=== PATIENT | female | born 1960 | race Caucasian/White ===

== ENCOUNTER 2019-11-13 12:20 | Inpatient (IN) | payer OTHER, SELFPAY ==
[2019-11-13] VITALS (10 sets, daily range): BP systolic 87–122; BP diastolic 45–85; PULSE 72–87; RESP 16–22; TEMP 35.7–36.7; O2SAT 95–100; BMI 37.1
--- NOTE | ~2019-11-13 | CT_ITS ---
EXAMINATION: CTA chest PE protocol EXAM DATE: 11/13/2019 14:41 INDICATION: Shortness of breath, pleuritic back pain. TECHNIQUE: Spiral CTA of the chest (pulmonary arteries) was performed with 100 cc Omnipaque 350 intr avenous contrast injection. Images were acquired during the pulmonary arterial phase. Coronal maxi mum intensity projection 3D-reconstructions were created by the technologist on dedicated workstation . Axial, coronal and sagittal reformatted images were reviewed. The dose-length product (DLP) for t his examination was 535.18 mGy-cm. The exposure was tailored according to patient size (auto mA exp osure control), and iterative reconstruction (ASIR) was used as additional dose reduction technique. Comparison is made to prior examination from 11/11/2012. FINDINGS: Pulmonary arteries are well opacified and without intraluminal filling defects. No thora cic aortic dissection. Dense segmental right lower lobe consolidation with surrounding groundglass o pacity. Groundglass opacity within the right upper lobe as well. Appearance most consistent with bact erial type pneumonia. Follow-up chest x-rays recommended to resolution. There are no pleural or rosina cardial effusions. Tracheobronchial tree is patent. There is no mediastinal, hilar or axillary ly mphadenopathy. There is no pneumothorax. Heart normal in size. No evidence of coronary arterial calcification. Upper abdomen is unremarkable. There is mild thoracic spondylosis without osteobla stic or osteolytic lesions identified. IMPRESSION: 1. Right lower lobe segmental consolidation, additional scattered right lung groundglass opacities m ost likely acute infectious process, bacterial pneumonia. Follow-up chest x-ray indicated to resoluti on to exclude any underlying chronic process. 2. No pulmonary emboli. Reviewed, dictated and finalized at location A. IMPRESSION: 1. Right lower lobe segmental consolidation, additional scattered right lung g roundglass opacities most likely acute infectious process, bacterial pneumonia. Follow-up chest x-ray indicated to resolution to exclude any underlying chroni c process. 2. No pulmonary emboli.
--- NOTE | ~2019-11-13 | XR_ITS ---
EXAMINATION: XR chest 1V portable DATE: 11/13/2019 13:07 INDICATION: Cough TECHNIQUE: frontal view of the chest was obtained. COMPARISON: Chest radiograph and CT dated 11/11/2012 FINDINGS: There is mild elevation of the right hemidiaphragm. New airspace opacity in the right midlung. No ple ural effusion or pneumothorax. The cardiomediastinal silhouette is normal. IMPRESSION: 1. New airspace opacity in the right midlung zone which could represent pneumonia, atelectasis or asy mmetric pulmonary edema. Reviewed, dictated and finalized at location A. IMPRESSION: 1. New airspace opacity in the right midlung zone which could represent pneumon ia, atelectasis or asymmetric pulmonary edema.
--- NOTE | ~2019-11-13 | XR_ITS ---
MODIFIED ESOPHAGRAM HISTORY: Dysphagia. TECHNIQUE: Modified barium esophagram was performed on 11/14/2019. I administered fluoroscopy and perfo rmed the exam with speech pathologist. Patient was seated for lateral fluoroscopic imaging for inges tion of thin liquids, pudding, solids and quantified amounts, followed by thin liquids in uncontrolle d amounts. This was recorded on tape. A single fluoroscopic spot image was also recorded. The DAP for this procedure was 1.4 Gycm2. The amount of fluoroscopy time used during this procedure was 1.6 madison amanda. FINDINGS: There are surgical clips in the prevertebral soft tissues of the pharynx and upper esophagus. Oral stage: Adequate function. Pharyngeal stage: Laryngeal penetration and aspiration which was silent. Vallecular residue. Cervical/esophageal stage: Adequate function. IMPRESSION: Pharyngeal dysphagia with laryngeal penetration and silent aspiration. Reviewed, dictated and finalized at location A. IMPRESSION: Pharyngeal dysphagia with laryngeal penetration and silent aspirati on.
[2019-11-13] MEDS: SODIUM CHLORIDE 0.9% IV 1,000 ML 999 ML IV CONT ×2 (12:54→15:06)
[2019-11-13 13:04] LABS: Basophils Percent Auto 0.2 % (0.2-1.2); Eosinophils Absolute Auto 0.1 K/mm3 (0-0.3); Eosinophils Percent Auto 0.7 % (0-4.4); Hematocrit 32.4 % (37.0-47.0); Hemoglobin 10.5 g/dL (12.0-15.0); Immature Granulocyte Absolute 0.04 K/mm3 (0.00-0.031); Immature Granulocyte Percent A 0.5 % (0-0.5); Lymphocytes Absolute Auto 0.95 K/mm3 (0.9-3.2); Lymphocytes Percent Auto 10.9 % (18.3-44.2); Mean Corpuscular HGB Conc 32.4 g/dl (32-36); Mean Corpuscular Volume 89.5 fl (80-100); Mean Platelet Volume 8.7 fl (7.4-10.4); Monocytes Absolute Auto 0.8 K/mm3 (0.1-0.6); Monocytes Percent Auto 8.6 % (2.6-8.5); Neutrophils Absolute Auto 6.9 K/mm3 (1.3-6.7); Neutrophils Percent Auto 79.1 % (45.5-73.1); Platelet Count Result 197 k/mm3 (150-375); Red Blood Count 3.62 M/mm3 (4.2-5.4); Red Cell Distribution Width 13.2 % (11.5-14.5); White Blood Count 8.8 K/mm3 (4.5-10.0)
[2019-11-13 13:15] LABS: D Dimer 1.38 ug/mL (<0.48)
[2019-11-13 13:16] LABS: Anion Gap 6 mmol/L (8-16); Blood Urea Nitrogen 27 mg/dL (7-17); Calcium 9.2 mg/dL (8.4-10.2); Carbon Dioxide 28 mmol/L (22-30); Chloride 102 mmol/L (98-107); Estimated CRCL calculation 58 ml/min; Estimated Glomerular Filt Rate 57; Glucose 119 mg/dL (65-105); Potassium 3.9 mmol/L (3.4-5.0); Sodium 136 mmol/L (137-145)
[2019-11-13 13:53] LABS: Alanine Aminotransferase 19 U/L (4-35); Albumin Level 3.7 g/dL (3.5-5.1); Alkaline Phosphatase 82 U/L (38-126); Anion Gap 7 mmol/L (8-16); Aspartate Amino Transferase 29 U/L (14-36); Bilirubin,Total < 0.1 mg/dL (0.2-1.3); Blood Urea Nitrogen 27 mg/dL (7-17); CRP 26.8 mg/dL (<1.0); Calcium 9.1 mg/dL (8.4-10.2); Carbon Dioxide 28 mmol/L (22-30); Chloride 102 mmol/L (98-107); Estimated CRCL calculation 58 ml/min; Estimated Glomerular Filt Rate 57; Glucose 117 mg/dL (65-105); Sodium 137 mmol/L (137-145)
[2019-11-13 14:08] LABS: Lactic Acid Reflex 0.7 mmol/L (0.7-2.1)
[2019-11-13 14:31] LABS: HIV 1/2 Ab P24 Ag 163
[2019-11-13 14:34] LABS: HIV 1/2 Ab P24 Ag Result Reactive (Negative)
--- NOTE | 2019-11-13 15:08 | ED.GENADULT ---
HPI - General Adult General Chief complaint: Upper Respiratory Infection Stated complaint: FEVER/CHILLS/SOB Time Seen by Provider: 11/13/19 12:36 History of Present Illness HPI narrative: Patient is a 58-year-old female who presents ER with fevers and chills. Cycling over the last week. Associated with pain in her back that is worse with a deep breath. She has some mild dyspnea. No nausea/vomiting. No lower extremity swelling. 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 He was discharged 2 weeks ago. At that time they found that he was HIV positive. She has never been tested previously and had no previous concerns for being HIV positive. She would like to be tested today. No known covered exposures. Related Data Home Medications Medication Instructions Recorded Confirmed alprazolam 1 mg PO QID PRN 11/13/19 11/13/19 amitriptyline 75 mg PO DAILY PRN 11/13/19 11/13/19 chlorhexidine gluconate 15 ml PO DAILY 11/13/19 11/13/19 dextroamphetamine-amphetamine 10 mg PO TID 11/13/19 11/13/19 ibuprofen 800 mg PO Q6H PRN 11/13/19 11/13/19 levothyroxine 50 mcg PO DAILY 11/13/19 11/13/19 lisinopril 40 mg PO DAILY 11/13/19 11/13/19 meloxicam 15 mg PO DAILY 11/13/19 11/13/19 oxycodone-acetaminophen 1 tablet PO Q4-6H PRN 11/13/19 11/13/19 rosuvastatin 40 mg PO DAILY 11/13/19 11/13/19 sertraline [Zoloft] 200 mg PO DAILY 11/13/19 11/13/19 Allergies Allergy/AdvReac Type Severity Reaction Status Date / Time morphine Allergy Mild unknown Verified 11/13/19 17:41 codeine Allergy Unknown Unknown Verified 11/13/19 17:41 Review of Systems Review of Systems: All systems reviewed & are unremarkable except as noted in HPI and below Constitutional: Constitutional: Reports chills, Reports fever(s) and Reports weakness ENT: Denies nasal congestion and Denies sore throat Cardiovascular: Cardiovascular: Denies chest pain and Denies radiating jaw, neck or arm pain Respiratory: Respiratory: Denies cough, Reports dyspnea and Denies wheezing Gastrointestinal: Gastrointestinal: Denies abdominal pain, Denies nausea and Denies vomiting Musculoskeletal: Musculoskeletal: Reports back pain, Denies joint swelling and Denies muscle cramps PMFSH Past Medical History Medical History (Updated 11/13/19 @ 18:26 by Andrés Fuentes MD) Anxiety Depression HIV positive Hyperlipidemia Hypertension Hypothyroidism Tonsillar cancer Surgical History Surgical History (Updated 11/13/19 @ 18:26 by Andrés Fuentes MD) H/O neck surgery History of Family History Family History (Updated 11/03/15 @ 23:19 by DOCTOR UNKNOWN) Father Hypertension Family history of diabetes mellitus in first degree relative Social History Social History (Updated 11/13/19 @ 15:42 by Andrés Fuentes MD) Smoking packs per day: 1 Smoking cigarettes per day: 20.0 Smoking status: Current every day smoker Alcohol intake: never Substance use: never Gender identity (if verbalized by the patient): Female Sexual Orientation (if Verbalized by the Patient): Straight or Heterosexual Spiritual care concerns: Yes (Moravian/Pentecostal) Exam Narrative: Exam Narrative: GENERAL: Well-appearing, well-nourished, and in no acute distress. HEAD: Normocephalic, atraumatic. ENT: Mucous membranes moist. CHEST: Clear to auscultation. No respiratory distress. HEART: Regular rate and rhythm. Normal peripheral pulses. ABDOMEN: Soft, nontender, nondistended. Back: No midline tenderness of thoracic lumbar spine. There is significant paraspinal muscular tenderness between the mid thoracic spine and the scapula that patient reports reproduces her pain. EXTREMITIES: Normal range of motion. No edema. SKIN: Warm, dry, no rash. NEURO: Alert and oriented x3. Course Course Emergency Course: Patient looks well despite low blood pressure and elevated CRP. Patient will not be
--- NOTE | 2019-11-13 17:24 | ADMGEN ---
This patient, Stormy Eric, was admitted to IMU Room 201-01. Patient/family oriented to hospital policies and general routines including ID bracelet, bed and alarms, visiting hours, pain management, procedures, bathroom and other care routines, personal items, smoking policy, room service/diet, and visiting hours. Valuables list has been completed. Information on how to activate the Rapid Response Team has been discussed. Patient/Family are encouraged to report perceived risks to care and to ask questions if they do not understand what they are told or what they should do.
--- NOTE | 2019-11-13 17:30 | PM.IMHP ---
H&P: HPI History of Present Illness Date/Time: 11/13/19 17:30 Chief complaint: Fever, cough. Narrative: Stormy Eric is a 58-year-old female smoker with hypertension, dyslipidemia, hypothyroidism, depression, anxiety, chronic pain syndrome, and history of squamous cell carcinoma of the head and neck who presented to the emergency department earlier this afternoon with complaints of a fever and cough. While grocery shopping 4 evening ago, she developed sudden onset chills and later that evening she reports a subjective fever and hot sweats. She also began experiencing pleuritic pain in her right anterior chest and in the right scapula as well as a mild cough occasionally productive of clear sputum. Her appetite has been as per usual, which is poor as she really has no sense of taste or smell since radiation and chemotherapy for her head and neck cancer in 2007. With further questioning, she initially had issues with dysphagia after her cancer was resected but she went through speech therapy and that did improve. On occasion she will still cough or choke when eating and drinking, but she cannot recall aspirating recently. More recently she has been suffering from what sounds like indigestion, with frequent belching and occasional regurgitation at night and burning in her esophagus. She denies significant shortness of breath, vomiting, diarrhea, recent travel, and exposure to those positive for COVID-19. She has not had sick contacts, but she does live in a house with her boyfriend and her boyfriend's mother, and she provides care for them as they were both ill. It sounds as though his mother has a trach and that her boyfriend recently had cardiac bypass with a complicated postoperative course and in fact he was found to be HIV positive. They have been together for approximately 16 years, so she assumed she probably has HIV to and her test did come back reactive today. Review of Systems Review of Systems: Narrative: Twelve systems were reviewed with pertinent positives and negatives as per HPI. No headache or neck ache. She has had a mild sore throat which she attributes to coughing and postnasal drip. She has chronic pain at the site of her cancer resection for which she takes oxycodone. She is also on meloxicam for generalized osteoarthritis. She denies vomiting. She also denies hematemesis, melena, and hematochezia. She believes that she has lost some weight, but she cannot say how much as she does not really weigh herself. No dysuria or diarrhea. She has been suffering from periodontal disease, and has several loose teeth. This disease causes her issues when eating, and she believes this is why she is losing weight. Except as documented, all other systems were reviewed and are negative. [facility] Past Medical History Medical History Anxiety Attention deficit disorder Chronic pain syndrome Depression Hyperlipidemia Hypertension Hypothyroidism Nicotine dependence Normal nuclear stress test (~11/2012) Normal thallium stress and MPI. Squamous cell carcinoma of head and neck Status post resection, radiation, and chemotherapy in 2007. Surgical History Surgical History (Updated 11/13/19 @ 21:24 by Michelle Erickson PA-C) History of bilateral breast reduction surgery History of bladder suspension procedure History of section History of open reduction and internal fixation (ORIF) procedure Right ankle. Status post radical dissection of neck (~2007) Right sided for squamous cell carcinoma of the head and neck. Family History Family History (Updated 11/13/19 @ 21:25 by Michelle Erickson PA-C) Father Hypertension Diabetes mellitus Cerebrovascular accident Sibling Hypertension Social History Social History (Updated 11/13/19 @ 21:27 by Michelle Erickson PA-C) Social History: Surrogate decision maker: Shefali Roldan, daughter. Code status: Full code.
[2019-11-13 22:42] LABS: Immature Reticulocyte Fraction 3.1 % (3.0-15.9); Reticulocyte Hemoglobin Conten 27.9 pg (28.2-35.7); Reticulocytes Absolute 0.02 B/L (32.2-175.7)
[2019-11-13 22:51] LABS: Lactate Dehydrogenase 358 U/L (313-618)
[2019-11-13] MEDS: ENOXAPARIN 40 MG/0.4 ML SYRINGE SUB-Q (23:01)
[2019-11-13 23:04] LABS: Iron 17 ug/dL (37-170)
[2019-11-13 23:13] LABS: Percent Iron Saturation 7 % (20-50)
[2019-11-13] MEDS: oxyCODONE/ACETAMINOPHEN 5-325 MG TABLET 1 TABLET PO (23:38)
[2019-11-13 23:58] LABS: Folic Acid 8.9 ng/mL (2.76->20)
[2019-11-14] VITALS (15 sets, daily range): BP systolic 88–125; BP diastolic 47–69; PULSE 61–100; RESP 16–20; TEMP 36.1–36.6; O2SAT 91–98
[2019-11-14 04:23] LABS: Hematocrit 30.5 % (37.0-47.0); Hemoglobin 9.7 g/dL (12.0-15.0); Mean Corpuscular HGB Conc 31.8 g/dl (32-36); Mean Corpuscular Hemoglobin 28.6 pg (26-34); Mean Platelet Volume 8.8 fl (7.4-10.4); Platelet Count Result 191 k/mm3 (150-375); Red Blood Count 3.39 M/mm3 (4.2-5.4); Red Cell Distribution Width 13.3 % (11.5-14.5)
[2019-11-14 04:41] LABS: Anion Gap 4 mmol/L (8-16); Blood Urea Nitrogen 17 mg/dL (7-17); Calcium 8.5 mg/dL (8.4-10.2); Carbon Dioxide 27 mmol/L (22-30); Chloride 106 mmol/L (98-107); Estimated CRCL calculation 111 ml/min; Estimated Glomerular Filt Rate > 60; Glucose 82 mg/dL (65-105); Potassium 4.4 mmol/L (3.4-5.0); Sodium 137 mmol/L (137-145)
[2019-11-14] MEDS: LEVOTHYROXINE SODIUM 50 MCG TABLET PO (05:35)
[2019-11-14] MEDS: oxyCODONE/ACETAMINOPHEN 5-325 MG TABLET 1 TABLET PO (05:36)
[2019-11-14] MEDS: PANTOPRAZOLE 40 MG TABLET PO (08:38)
[2019-11-14] MEDS: MELOXICAM 7.5 MG TABLET 15 MG PO (08:38)
[2019-11-14] MEDS: SERTRALINE HCL 50 MG TABLET 200 MG PO (08:38)
[2019-11-14] MEDS: ROSUVASTATIN 10 MG TABLET 40 MG PO (08:38)
[2019-11-14] MEDS: CHLORHEXIDINE GLUCONATE 0.12% ORAL RINSE 473 ML BTL (*BKC) 15 ML SWISH/SPIT (08:39)
--- NOTE | 2019-11-14 11:50 | PCSTNOTE ---
Modified barium swallow study completed. Please see ST evaluation for details and diet recommendations.
--- NOTE | 2019-11-14 14:29 | PM.IMPN ---
Progress Note: A&P Assessment and Plan (1) Community acquired pneumonia: Code(s): J18.9 - Pneumonia, unspecified organism Status: Acute Assessment and Plan: No fevers here but presents with fever and cough. CTA showing no PE but does show a right lower lobe segmental consolidation with scattered right lung groundglass opacities. Looks like a round PNA. Patient will need follow-up to resolution to exclude underlying chronic process. Given the aspiration risk, will change to Zosyn. Vanco added for the positive BCx. Not on supplemental O2. Continue to follow. (2) Bacteremia: Code(s): R78.81 - Bacteremia Status: Acute Assessment and Plan: BCx (1of2) has returned positive for gram positive cocci in clusters in anaerobic bottle. Abx adjusted as above. Follow up on ID and sensitivities. (3) Dysphagia: Code(s): R13.10 - Dysphagia, unspecified Status: Acute Assessment and Plan: Patient told provider on admisison that she has been having feelings of regurgitation at nighttime. Swallow study obtained and patient found to be having silent aspirations. She states now that she has had trouble swallowing since her XRT in 2007. She has never been assessed for dysphagia that she remembers. Speech therapy to follow. Start IV fluids. Change meds to IV or hold. NPO for now. Discussed with patient and boyfriend (with patient permission) in the room. (4) HIV positive: Code(s): Z21 - Asymptomatic human immunodeficiency virus [HIV] infection status Status: Acute Assessment and Plan: Patient's boyfriend recently discovered that he was HIV(+). Patient tested positive here for HIV. HIV vial load and CD4 counts added. Will consult ID. (5) Hypertension: Code(s): I10 - Essential (primary) hypertension Status: Acute Assessment and Plan: Patient has hx of HTN and takes Lisinopril. BP soft since admission related to the sepsis with bacteremia. Patient's blood pressure was reviewed on 11/14/19. Blood pressure remains soft at times. Will continue to hold home medications. IV fluids started. (6) Gastroesophageal reflux: Code(s): K21.9 - Gastro-esophageal reflux disease without esophagitis Status: Acute Assessment and Plan: Patient describes GERD symptoms with burning, belching, and feelings of regurgitation at nighttime. PPI started. (7) Hypothyroidism: Code(s): E03.9 - Hypothyroidism, unspecified Status: Acute Assessment and Plan: TSH nomral. Continue levothyroxine and change to IV form. (8) Normocytic anemia: Code(s): D64.9 - Anemia, unspecified Status: Acute Assessment and Plan: Hgb 10.5 on admission. No baseline. Iron is low with 7% saturation but TIBC low as well to suggest anemia of chronic disease. Ferritin normal. Repeat Hgb 9.7. Add iron when able. (9) Squamous cell carcinoma of head and neck: Code(s): C76.0 - Malignant neoplasm of head, face and neck Status: Acute Assessment and Plan: Status post resection, radiation, and chemotherapy in 2007. (10) Nicotine dependence: Code(s): F17.200 - Nicotine dependence, unspecified, uncomplicated Status: Acute Assessment and Plan: She declines the need for a nicotine patch. (11) Chronic pain syndrome: Code(s): G89.4 - Chronic pain syndrome Status: Acute Assessment and Plan: Patient takes oxycodon
[2019-11-14] MEDS: DEXTROSE 5%/0.9% SOD CHL 1,000 ML 70 ML IV CONT (15:27)
[2019-11-14] MEDS: ENOXAPARIN 40 MG/0.4 ML SYRINGE SUB-Q (20:25)
[2019-11-15] VITALS (13 sets, daily range): BP systolic 100–136; BP diastolic 56–87; PULSE 54–72; RESP 16–20; TEMP 36.3–36.7; O2SAT 94–97
[2019-11-15 04:51] LABS: Basophils Percent Auto 0.2 % (0.2-1.2); Eosinophils Absolute Auto 0.1 K/mm3 (0-0.3); Eosinophils Percent Auto 2.3 % (0-4.4); Hematocrit 29.7 % (37.0-47.0); Hemoglobin 9.3 g/dL (12.0-15.0); Immature Granulocyte Absolute 0.01 K/mm3 (0.00-0.031); Immature Granulocyte Percent A 0.2 % (0-0.5); Lymphocytes Absolute Auto 0.97 K/mm3 (0.9-3.2); Lymphocytes Percent Auto 22.1 % (18.3-44.2); Mean Corpuscular HGB Conc 31.3 g/dl (32-36); Mean Corpuscular Hemoglobin 28.2 pg (26-34); Mean Platelet Volume 8.5 fl (7.4-10.4); Monocytes Absolute Auto 0.4 K/mm3 (0.1-0.6); Monocytes Percent Auto 9.8 % (2.6-8.5); Neutrophils Absolute Auto 2.9 K/mm3 (1.3-6.7); Neutrophils Percent Auto 65.4 % (45.5-73.1); Platelet Count Result 205 k/mm3 (150-375); Red Cell Distribution Width 13.2 % (11.5-14.5); White Blood Count 4.4 K/mm3 (4.5-10.0)
[2019-11-15 05:07] LABS: Anion Gap 4 mmol/L (8-16); Blood Urea Nitrogen 12 mg/dL (7-17); Calcium 8.4 mg/dL (8.4-10.2); Carbon Dioxide 29 mmol/L (22-30); Chloride 103 mmol/L (98-107); Estimated CRCL calculation 94 ml/min; Estimated Glomerular Filt Rate > 60; Glucose 94 mg/dL (65-105); Sodium 136 mmol/L (137-145)
[2019-11-15] MEDS: LEVOTHYROXINE SODIUM INJ 100 MCG/5 ML VIAL 25 MCG IV PUSH (06:17)
[2019-11-15] MEDS: PANTOPRAZOLE SODIUM IV 40 MG VIAL IV PUSH (08:12)
[2019-11-15] MEDS: CHLORHEXIDINE GLUCONATE 0.12% ORAL RINSE 473 ML BTL (*BKC) 15 ML SWISH/SPIT (08:14)
--- NOTE | 2019-11-15 09:26 | WPDINFPN2 ---
Progress Note: A&P Assessment and Plan (1) HIV positive: Code(s): Z21 - Asymptomatic human immunodeficiency virus [HIV] infection status Status: Acute Assessment and Plan: 1. + HIV test, probably true infection 2. CAP 3. Bacteremia 4. Aspiration syndrome REC PipTazo and vanc. Viral load pending for confirmation. Hepatitis serology, rpr. Subjective Date/time seen: 11/15/19 09:26 Objective Data Vital Signs Vital Signs: Vital Signs - 24 hr 11/14/19 09:33 11/14/19 10:02 11/14/19 12:00 Temperature 36.6 C Pulse Rate 65 69 Respiratory Rate 18 Blood Pressure 116/49 L 100/49 L Pulse Oximetry 98 11/14/19 14:02 11/14/19 16:00 11/14/19 18:10 Temperature 36.5 C Pulse Rate 68 70 64 Respiratory Rate 18 Blood Pressure 99/58 L Pulse Oximetry 95 11/14/19 19:21 11/14/19 20:00 11/14/19 22:00 Temperature 36.5 C Pulse Rate 65 75 61 Respiratory Rate 18 Blood Pressure 113/59 L Pulse Oximetry 94 11/14/19 23:51 11/15/19 00:00 11/15/19 02:00 Temperature 36.1 C L Pulse Rate 65 67 69 Respiratory Rate 16 Blood Pressure 107/47 L Pulse Oximetry 94 11/15/19 03:48 11/15/19 04:00 11/15/19 06:00 Temperature 36.4 C Pulse Rate 72 72 65 Respiratory Rate 20 Blood Pressure 136/87 Pulse Oximetry 96 11/15/19 07:58 Temperature 36.3 C L Pulse Rate 65 Respiratory Rate 20 Blood Pressure 122/63 Pulse Oximetry 94 Intake/Output Intake/Output: Intake & Output 11/12/19 11/13/19 11/14/19 11/15/19 23:59 23:59 23:59 23:59 Intake Total 2300 490 550 Output Total 274 417 8394 Balance [phone] -[phone] [id number] Meds/Results Medications: Active Medications Generic Name Dose Route Start Last Admin Trade Name Freq PRN Reason Stop Dose Admin Acetaminophen 650 mg 11/13/19 15:38 Tylenol Tablet PO Q4H PRN Mild Pain (1-3) or Fever Albuterol 2 puff 11/13/19 21:40 Proventil Hfa INHALATION QIDRT PRN Shortness Of Breath Alprazolam 1 mg 11/13/19 21:41 Xanax PO QID PRN Anxiety Amitriptyline HCl 75 mg 11/13/19 21:41 Elavil PO DAILY PRN Anxiety Chlorhexidine Gluconate 15 ml 11/14/19 09:00 11/15/19 08:14 Peridex SWISH/SPIT 15 ml DAILY LENCHO Administration Enoxaparin Sodium 40 mg 11/13/19 21:00 11/14/19 20:25 Lovenox SUB-Q 40 mg Q24H LENCHO Administration Dextrose/Sodium Chloride 1,000 mls @ 70 mls/hr 11/14/19 14:55 11/14/19 15:27 Dextrose 5% Sodium Chloride 0.9% IV CONT 70 mls/hr .[id number] LENCHO Administration Piperacillin/Tazobactam/Dextrose 3.375 gm in 50 mls @ 100 mls/hr 11/14/19 18:00 11/15/19 06:45 Zosyn 3.375 Gm/D5w 50ml Pm IVPB Infused Q6HR LENCHO Infusion Vancomycin HCl 1,500 mg in 500 mls @ 333.333 mls/hr 11/14/19 19:00 11/15/19 06:18 Vancomycin 1,500 Mg/D5w 500 Ml IVPB 333.3 mls/hr Q12H LENCHO Administration Acetaminophen 1,000 mg in 100 mls @ 400 mls/hr 11/14/19 19:04 11/15/19 08:50 Ofirmev 1,000 Mg Ivpb IVPB 11/15/19 16:17 400 mls/hr Q6H PRN Administration Pain Rated 1-6 Levothyroxine Sodium 50 mcg 11/14/19 06:30 11/14/19 05:35 Synthroid PO 50 mcg DAILY@0630 LENCHO Administration Levothyroxine Sodium 25 mcg 11/15/19 06:30 11/15/19 06:17 Synthroid Inj IV PUSH 25 mcg DAILY@0630 LENCHO Administration Lorazepam 0.5 mg 11/14/19 11:43 11/14/19 23:07 Ativan Inj IV PUSH 0.5 mg Q6H PRN Administration Anxiety Meloxicam 15 mg 11/14/19 09:00 11/14/19 08:38 Mobic PO 12/14/19 09:01 15 mg DAILY LENCHO Administration Non-Formulary Medication 10 mg 11/14/19 09:00 11/14/19 11:08 Dextroamphetamine-Amphetamine PO 12/14/19 09:01 Not Given TID LENCHO Ondansetron HCl 4 mg 11/13/19 15:38 Zofran Inj IV PUSH Q4H PRN Nausea Oxycodone HCl 5 mg 11/13/19 23:18 11/14/19 05:36 Roxicodone Ir Tablet PO 5 mg Q4-6H PRN Administration Pain Rated 7-10 Oxycodone/Acetaminophen 1 tablet 08
[2019-11-15 10:35] LABS: Hepatitis B Surface Antigen Negative (Negative)
[2019-11-15 10:41] LABS: HAV RESULT Negative (Negative); Hepatitis B Core IgM Result Negative (Negative)
[2019-11-15 10:52] LABS: Hepatitis C Virus Antibody Negative (Negative)
--- NOTE | 2019-11-15 11:01 | CONS_ITS ---
DATE OF CONSULTATION: 11/15/2019 REASON FOR CONSULTATION: HIV positive tests. HISTORY OF PRESENT ILLNESS: Ms. Eric is a 58-year-old female who may have received blood transfusions as part of treatment for her cancer some 10 years ago. Otherwise, she has had no previous blood transfusions. She has never tried to donate blood. She has never worked in the healthcare field nor had accidental needle sticks in the community. She has had approximately 12 sexual partners in her lifetime, none of whom were HIV-positive until currently, that she was aware of. She has never had previous HIV testing at any point. She has a daughter of approximately 42 years old and a son 15 years old. She is and has been living with her boyfriend with sexual intercourse for some 15 years. He found out about 2 weeks prior to the present admission that he was HIV positive, done his evaluation for complications from surgery, by the patient's description. Her does not use a condom. The patient has had no past STDs. She was admitted to the hospital on November 12 with 4 days of fever, chills, diaphoresis, cough, pleuritic pain, sputum production without nausea or vomiting. She has had some aspiration symptoms. Also GERD. While here, the patient was given antibiotics, now changed to piperacillin and vancomycin due to concern over aspiration pneumonia as well as positive blood cultures. I was not notified of the consult until this morning. ALLERGIES: MORPHINE, CODEINE. HABITS: Long-time tobacco, half pack per day. She denies ever using IV drugs and no illegal drugs in the last 2 years. Alcohol intake is none. No immunosuppressants. PAST MEDICAL HISTORY: Head and neck cancer. Squamous cell, about 12 years ago with radical neck dissection and chemotherapy. Also, breast reduction, bladder suspension, , ORIF right ankle, ADD, depression, hyperlipidemia, hypertension, hypothyroidism. REVIEW OF SYSTEMS: A 14-point review is otherwise negative. FAMILY HISTORY: Hypertension, diabetes, stroke. SOCIAL HISTORY: Lives with her boyfriend and son. 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 PHYSICAL EXAMINATION: GENERAL: This is a female, who appears older than her actual age, in no acute distress. VITAL SIGNS: Afebrile since arrival. 122/63, 65, 20, 94%. SKIN: Warm and dry. No generalized rash. HEENT: The conjunctivae are normal. Pupils equal, round, and reactive to light. Oropharynx, oral mucosa normal. Teeth in good repair. No paranasal sinus erythema edema tenderness. NECK: No meningismus, mass, thyromegaly. LUNGS: Clear to auscultation. Breath sounds are vesicular and clear to percussion. CARDIAC: Regular rate and rhythm. Normal S1, S2. No murmur, gallop, or rub. Pulses 2+. ABDOMEN: Morbidly obese, nontender. No masses. No organomegaly. No ascites. Normal bowel sounds. EXTREMITIES: No clubbing, cyanosis, edema. Well perfused. MUSCULOSKELETAL: No active joint inflammation. Neurologic awake, alert, oriented, appropriate, answers questions. LABORATORY DATA: Her HIV screen is reactive. Quantitative RNA in process. Blood cultures 2/2 sets gram-positive cocci in clusters. White count was 8.8 on admission, 4.4 today, hemoglobin 9.3, platelets are 205. Differential today is normal. Chemistry normal except for a sodium 136, earlier glucose 117, now normalized. Iron and TIBC both low. CRP 27. TSH normal. Lymphocyte panel pending. Legionella and urine pneumococcal antigens all pending as well. RADIOLOGY: I personally reviewed her chest x-ray. She has a new right mid lung field infiltrate. I reviewed the radiologist reading as well. CT as described. MBS also abnormal. ASSESSMENT: 1. Aspiration syndrome. 2. Fever and cou
[2019-11-15] MEDS: DEXTROSE 5%/0.9% SOD CHL 1,000 ML 70 ML IV CONT (12:04)
--- NOTE | 2019-11-15 15:52 | PM.IMPN ---
Progress Note: A&P Assessment and Plan (1) Community acquired pneumonia: Code(s): J18.9 - Pneumonia, unspecified organism Status: Acute Assessment and Plan: No fevers here but presents with fever and cough. CTA showing no PE but does show a right lower lobe segmental consolidation with scattered right lung groundglass opacities consistent with PNA. Patient will need follow-up to resolution to exclude underlying chronic process. Given the aspiration risk, Rocephin/Azithromycin changed to Zosyn. Vanco added for the positive BCx. Not requiring O2. (2) Bacteremia: Code(s): R78.81 - Bacteremia Status: Acute Assessment and Plan: BCx (2of2) has returned positive for coag negative staph. Continue Vancomycin. ID consulted and appreciate their input. Repeat BCx tomorrow. (3) Dysphagia: Code(s): R13.10 - Dysphagia, unspecified Status: Acute Assessment and Plan: Patient told provider on admission that she has been having feelings of regurgitation at nighttime. Swallow study obtained and patient found to be having silent aspiration. She states now that she has had trouble swallowing since her XRT in 2007. She has never been assessed for dysphagia that she remembers. She is NPO now and Speech therapy is following. Continue IV fluids. (4) HIV positive: Code(s): Z21 - Asymptomatic human immunodeficiency virus [HIV] infection status Status: Acute Assessment and Plan: Patient's boyfriend recently discovered that he was HIV(+). Patient tested Ab positive here for HIV. HIV vial load and CD4 counts added. ID following and appreciate their input. (5) Hypertension: Code(s): I10 - Essential (primary) hypertension Status: Acute Assessment and Plan: Patient has hx of HTN and takes Lisinopril. BP soft since admission related to the sepsis with bacteremia. Patient's blood pressure was reviewed on 11/15/19. Blood pressure still remains soft at times but more stable. Will continue to hold home medications. Continue IV fluids. Okay to move out of [facility] (6) Gastroesophageal reflux: Code(s): K21.9 - Gastro-esophageal reflux disease without esophagitis Status: Acute Assessment and Plan: Patient describes GERD symptoms with burning, belching, and feelings of regurgitation at nighttime. Continue PPI. (7) Hypothyroidism: Code(s): E03.9 - Hypothyroidism, unspecified Status: Acute Assessment and Plan: TSH nomral. Continue levothyroxine IV form. (8) Normocytic anemia: Code(s): D64.9 - Anemia, unspecified Status: Acute Assessment and Plan: Hgb 10.5 on admission. No baseline. Iron is low with 7% saturation but TIBC low as well to suggest anemia of chronic disease. Ferritin normal. Repeat Hgb 9.3. Add iron when able. (9) Squamous cell carcinoma of head and neck: Code(s): C76.0 - Malignant neoplasm of head, face and neck Status: Acute Assessment and Plan: Status post resection, radiation, and chemotherapy in 2007. (10) Nicotine dependence: Code(s): F17.200 - Nicotine dependence, unspecified, uncomplicated Status: Acute Assessment and Plan: She declines the need for a nicotine patch. (11) Chronic pain syndrome: Code(s): G89.4 - Chronic pain syndrome Status: Acute Assessment and Plan: Patient takes oxycodone as needed but placed on hold due to NPO status and low
--- NOTE | 2019-11-15 17:04 | PC.NURSE ---
This patient, Stormy Eric, was transferred to [[id number] ] on 11/15/19 at 1704. Personal belongings sent with patient. Belongings list checked and signed with receiving [ ]. Report given to [ JALEEL Harper @ [phone]]. Appropriate documentation sent with patient.
--- NOTE | 2019-11-15 17:05 | PC.NURSE ---
Transfer received from [facility]. Report from JALEEL Guerra.
[2019-11-15] MEDS: ENOXAPARIN 40 MG/0.4 ML SYRINGE SUB-Q (20:04)
[2019-11-16] VITALS: BP 133/74; PULSE 62; RESP 16; TEMP 36.6; O2SAT 95
[2019-11-16 05:23] VITALS: BP 134/82; PULSE 75; RESP 16; TEMP 37.1; O2SAT 94
[2019-11-16] MEDS: LEVOTHYROXINE SODIUM INJ 100 MCG/5 ML VIAL 25 MCG IV PUSH (05:52)
[2019-11-16] MEDS: DEXTROSE 5%/0.9% SOD CHL 1,000 ML 70 ML IV CONT (05:52)
[2019-11-16 06:36] LABS: Hematocrit 30.9 % (37.0-47.0); Hemoglobin 9.9 g/dL (12.0-15.0); Mean Corpuscular Hemoglobin 28.6 pg (26-34); Mean Corpuscular Volume 89.3 fl (80-100); Mean Platelet Volume 8.3 fl (7.4-10.4); Platelet Count Result 203 k/mm3 (150-375); Red Blood Count 3.46 M/mm3 (4.2-5.4); Red Cell Distribution Width 12.9 % (11.5-14.5); White Blood Count 4.3 K/mm3 (4.5-10.0)
[2019-11-16 07:00] LABS: Anion Gap 4 mmol/L (8-16); Blood Urea Nitrogen 9 mg/dL (7-17); Calcium 8.5 mg/dL (8.4-10.2); Carbon Dioxide 29 mmol/L (22-30); Chloride 106 mmol/L (98-107); Estimated CRCL calculation 97 ml/min; Estimated Glomerular Filt Rate > 60; Glucose 99 mg/dL (65-105); Potassium 3.7 mmol/L (3.4-5.0); Sodium 139 mmol/L (137-145)
[2019-11-16 07:18] LABS: Vancomycin Trough 17.5 ug/mL (10.0-20.0)
[2019-11-16 08:16] LABS: Rapid Plasma Reagin Non-Reactive (NonReactive)
[2019-11-16] MEDS: PANTOPRAZOLE SODIUM IV 40 MG VIAL IV PUSH (09:11)
[2019-11-16] MEDS: CHLORHEXIDINE GLUCONATE 0.12% ORAL RINSE 473 ML BTL (*BKC) 15 ML SWISH/SPIT (09:12)
--- NOTE | 2019-11-16 13:46 | WPDINFPN2 ---
Progress Note: A&P Assessment and Plan (1) HIV positive: Code(s): Z21 - Asymptomatic human immunodeficiency virus [HIV] infection status Status: Acute Assessment and Plan: 1. + HIV test, probably true infection. Other serologies so far NR (hep B core and Quantiferon still pending) 2. CAP, better 3. Bacteremia, CNSS 4. Aspiration syndrome REC PipTazo and vanc same, 2 days more IV therapy. Await viral load as well as CD4 panel. 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 Subjective Date/time seen: 11/16/19 13:46 Objective Data Vital Signs Vital Signs: Vital Signs - 24 hr 11/15/19 14:00 11/15/19 20:00 11/15/19 21:03 Temperature 36.7 C Pulse Rate 54 L 57 L 57 L Respiratory Rate 16 16 Blood Pressure 127/76 Pulse Oximetry 97 97 11/16/19 00:00 11/16/19 05:23 Temperature 36.6 C 37.1 C Pulse Rate 62 75 Respiratory Rate 16 16 Blood Pressure 133/74 134/82 Pulse Oximetry 95 94 Intake/Output Intake/Output: Intake & Output 11/13/19 11/14/19 11/15/19 11/16/19 23:59 23:59 23:59 23:59 Intake Total 2300 490 3050 2400 Output Total 885 142 7965 950 Balance 1650 -310 -1450 1450 Meds/Results Medications: Active Medications Generic Name Dose Route Start Last Admin Trade Name Freq PRN Reason Stop Dose Admin Acetaminophen 650 mg 11/13/19 15:38 Tylenol Tablet PO Q4H PRN Mild Pain (1-3) or Fever Albuterol 2 puff 11/13/19 21:40 Proventil Hfa INHALATION QIDRT PRN Shortness Of Breath Alprazolam 1 mg 11/13/19 21:41 Xanax PO QID PRN Anxiety Amitriptyline HCl 75 mg 11/13/19 21:41 Elavil PO DAILY PRN Anxiety Chlorhexidine Gluconate 15 ml 11/14/19 09:00 11/16/19 09:12 Peridex SWISH/SPIT 15 ml DAILY LENCHO Administration Enoxaparin Sodium 40 mg 11/13/19 21:00 11/15/19 20:04 Lovenox SUB-Q 40 mg Q24H LENCHO Administration Dextrose/Sodium Chloride 1,000 mls @ 70 mls/hr 11/14/19 14:55 11/16/19 05:52 Dextrose 5% Sodium Chloride 0.9% IV CONT 70 mls/hr .[id number] LENCHO Administration Piperacillin/Tazobactam/Dextrose 3.375 gm in 50 mls @ 100 mls/hr 11/14/19 18:00 11/16/19 06:35 Zosyn 3.375 Gm/D5w 50ml Pm IVPB Infused Q6HR LENCHO Infusion Acetaminophen 1,000 mg in 100 mls @ 400 mls/hr 11/15/19 16:38 11/16/19 04:33 Ofirmev 1,000 Mg Ivpb IVPB 11/16/19 16:39 Infused Q6H PRN Infusion Pain Rated 4-6 Vancomycin HCl 1,500 mg in 500 mls @ 333.333 mls/hr 11/16/19 14:00 Vancomycin 1,500 Mg/D5w 500 Ml IVPB Q18H LENCHO Levothyroxine Sodium 50 mcg 11/14/19 06:30 11/14/19 05:35 Synthroid PO 50 mcg DAILY@0630 LENCHO Administration Levothyroxine Sodium 25 mcg 11/15/19 06:30 11/16/19 05:52 Synthroid Inj IV PUSH 25 mcg DAILY@0630 LENCHO Administration Lorazepam 0.5 mg 11/14/19 11:43 11/16/19 05:52 Ativan Inj IV PUSH 0.5 mg Q6H PRN Administration Anxiety Meloxicam 15 mg 11/14/19 09:00 11/14/19 08:38 Mobic PO 12/14/19 09:01 15 mg DAILY LENCHO Administration Non-Formulary Medication 10 mg 11/14/19 09:00 11/14/19 11:08 Dextroamphetamine-Amphetamine PO 12/14/19 09:01 Not Given TID LENCHO Ondansetron HCl 4 mg 11/13/19 15:38 Zofran Inj IV PUSH Q4H PRN Nausea Oxycodone HCl 5 mg 11/13/19 23:18 11/14/19 05:36 Roxicodone Ir Tablet PO 5 mg Q4-6H PRN Administration Pain Rated 7-10 Oxycodone/Acetaminophen 1 tablet 11/13/19 21:41 11/14/19 05:36 Percocet 5-325 Mg PO 1 tablet Q4-6H PRN Administration Pain Rated 7-10 Pantoprazole Sodium 40 mg 11/15/19 09:00 11/16/19 09:11 Protonix Iv IV PUSH 40 mg QAM LENCHO Administration Rosuvastatin Calcium 40 mg 11/14/19 09:00 11/14/19 08:38 Crestor PO 40 mg DAILY LENCHO Administration Sertraline HCl 200 mg 11/14/19 09:00 11/14/19 08:38 Zoloft PO 200 mg DAILY LENCHO Administration Radiology Results: ITS Impressions Chest
[2019-11-16 15:03] VITALS: BP 98/64; PULSE 63; RESP 16; TEMP 36; O2SAT 97
--- NOTE | 2019-11-16 16:27 | P.PNIM_ITS ---
Progress Note: A&P Assessment and Plan (1) Community acquired pneumonia: Code(s): J18.9 - Pneumonia, unspecified organism Status: Acute Assessment and Plan: * Right lower lobe consolidation suggesting community-acquired bacterial pneumonia. * Will need follow-up to resolution to exclude underlying chronic process. * Given reports of Occasional dysphasia swallow test performed and revealed some evidence of aspiration. Patient relates though she is not going to follow a modified diet * discussed with speech therapy and will resume diet with no restriction * continue 2 more days of Zosyn and vancomycin per ID total 5 days treatment * Sputum and urine to be sent for culture and urinary antigens. * COVID-19 unlikely by appearance. (2) Gastroesophageal reflux: Code(s): K21.9 - Gastro-esophageal reflux disease without esophagitis Status: Acute Assessment and Plan: * She describes GERD symptoms with burning, belching, and feelings of regurgitation at nighttime. * Started PPI (3) HIV positive: Code(s): Z21 - Asymptomatic human immunodeficiency virus [HIV] infection status Status: Acute Assessment and Plan: * Recently discovered that her boyfriend of 16 years was HIV positive. * Will send labs for confirmation. * id evaluating. (4) Hypertension: Code(s): I10 - Essential (primary) hypertension Status: Acute Assessment and Plan: * Blood pressures were soft on arrival to the emergency department, but have improved with IV fluid rehydration. * For now, holding antihypertensives and continue to monitor closely. (5) Hypothyroidism: Code(s): E03.9 - Hypothyroidism, unspecified Status: Acute Assessment and Plan: * Continue levothyroxine and TSH normal. (6) Normocytic anemia: Code(s): D64.9 - Anemia, unspecified Status: Acute Assessment and Plan: * iron studies revealed iron and TIBC low compatible with anemia chronic disease (7) Squamous cell carcinoma of head and neck: Code(s): C76.0 - Malignant neoplasm of head, face and neck Status: Acute Assessment and Plan: * Status post resection, radiation, and chemotherapy in 2007, will follow-up with ENT. (8) Nicotine dependence: Code(s): F17.200 - Nicotine dependence, unspecified, uncomplicated Status: Acute Assessment and Plan: * She declines the need for a nicotine patch. (9) Chronic pain syndrome: Code(s): G89.4 - Chronic pain syndrome Status: Acute Assessment and Plan: * Continue oxycodone as needed. Subjective Date/time seen: 11/16/19 16:27 Interval history: 58yo female with hx of sqamous cell neck cancer s/p XRT here for fever and cough and found to have RLL pneumonia. She states her longstanding boyfriend was recently diagnosed with HIV and the patietn is HIV Ab(+) here. No problems overnight. Slept well. Feeling better overall. Wants regular diet
--- NOTE | 2019-11-16 16:27 | PM.IMPN ---
Progress Note: A&P Assessment and Plan (1) Community acquired pneumonia: Code(s): J18.9 - Pneumonia, unspecified organism Status: Acute Assessment and Plan: Right lower lobe consolidation suggesting community-acquired bacterial pneumonia. Will need follow-up to resolution to exclude underlying chronic process. Given reports of Occasional dysphasia swallow test performed and revealed some evidence of aspiration. Patient relates though she is not going to follow a modified diet discussed with speech therapy and will resume diet with no restriction continue 2 more days of Zosyn and vancomycin per ID total 5 days treatment Sputum and urine to be sent for culture and urinary antigens. COVID-19 unlikely by appearance. (2) Gastroesophageal reflux: Code(s): K21.9 - Gastro-esophageal reflux disease without esophagitis Status: Acute Assessment and Plan: She describes GERD symptoms with burning, belching, and feelings of regurgitation at nighttime. Started PPI (3) HIV positive: Code(s): Z21 - Asymptomatic human immunodeficiency virus [HIV] infection status Status: Acute Assessment and Plan: Recently discovered that her boyfriend of 16 years was HIV positive. Will send labs for confirmation. id evaluating. (4) Hypertension: Code(s): I10 - Essential (primary) hypertension Status: Acute Assessment and Plan: Blood pressures were soft on arrival to the emergency department, but have improved with IV fluid rehydration. For now, holding antihypertensives and continue to monitor closely. (5) Hypothyroidism: Code(s): E03.9 - Hypothyroidism, unspecified Status: Acute Assessment and Plan: Continue levothyroxine and TSH normal. (6) Normocytic anemia: Code(s): D64.9 - Anemia, unspecified Status: Acute Assessment and Plan: iron studies revealed iron and TIBC low compatible with anemia chronic disease (7) Squamous cell carcinoma of head and neck: Code(s): C76.0 - Malignant neoplasm of head, face and neck Status: Acute Assessment and Plan: Status post resection, radiation, and chemotherapy in 2007, will follow-up with ENT. (8) Nicotine dependence: Code(s): F17.200 - Nicotine dependence, unspecified, uncomplicated Status: Acute Assessment and Plan: She declines the need for a nicotine patch. (9) Chronic pain syndrome: Code(s): G89.4 - Chronic pain syndrome Status: Acute Assessment and Plan: Continue oxycodone as needed. Subjective Date/time seen: 11/16/19 16:27 Interval history: 58yo female with hx of sqamous cell neck cancer s/p XRT here for fever and cough and found to have RLL pneumonia. She states her longstanding boyfriend was recently diagnosed with HIV and the patietn is HIV Ab(+) here. No problems overnight. Slept well. Feeling better overall. Wants regular diet Exam Narrative: Exam Narrative: AF 97.7 98/64 62 16 97% ra Gen - NARD Chest - clear, nml RR CV - RRR S1/S2; Abd - Soft, NT/ND, Positive BS Ext - No pedal edema Psych - normal mood and affect, calm, pleasant and cooperative. Skin - Warm and dry Objective Data Vital Signs Vital Signs: Vital Signs - 24 hr 11/15/19 20:00 11/15/19 21:03 11/16/19 00:00 Temperature 36.7 C 36.6 C Pulse Rate 57 L 57 L 62 Respiratory Rate 16 16 16 Bloo
[2019-11-16] MEDS: ENOXAPARIN 40 MG/0.4 ML SYRINGE SUB-Q (21:39)
[2019-11-16 23:42] VITALS: BP 127/82; PULSE 61; RESP 18; TEMP 36.8; O2SAT 98
[2019-11-17] MEDS: DEXTROSE 5%/0.9% SOD CHL 1,000 ML 70 ML IV CONT ×2 (04:27→23:42)
[2019-11-17] MEDS: oxyCODONE/ACETAMINOPHEN 5-325 MG TABLET 1 TABLET PO (04:28)
[2019-11-17] MEDS: LEVOTHYROXINE SODIUM INJ 100 MCG/5 ML VIAL 25 MCG IV PUSH (05:35)
[2019-11-17 05:45] VITALS: BP 138/87; PULSE 70; RESP 16; TEMP 36.2; O2SAT 95
[2019-11-17] MEDS: PANTOPRAZOLE SODIUM IV 40 MG VIAL IV PUSH (08:53)
[2019-11-17] MEDS: CHLORHEXIDINE GLUCONATE 0.12% ORAL RINSE 473 ML BTL (*BKC) 15 ML SWISH/SPIT (08:54)
[2019-11-17] MEDS: ALPRAZolam 0.5 MG TABLET 1 MG PO ×2 (13:34→18:34)
[2019-11-17 14:00] VITALS: BP 112/58; PULSE 60; RESP 20; TEMP 36.2; O2SAT 97
--- NOTE | 2019-11-17 15:50 | P.PNIM_ITS ---
Progress Note: A&P Assessment and Plan (1) Community acquired pneumonia: Code(s): J18.9 - Pneumonia, unspecified organism Status: Acute Assessment and Plan: * Right lower lobe consolidation suggesting community-acquired bacterial pneumonia. * Will need follow-up to resolution to exclude underlying chronic process. * Given reports of Occasional dysphasia swallow test performed and revealed some evidence of aspiration. Patient relates though she is not going to follow a modified diet * discussed with speech therapy and will resume diet with no restriction * continue 1 more days of Zosyn and vancomycin per ID total 5-6 days treatment * Sputum and urine to be sent for culture and urinary antigens still pending. * COVID-19 unlikely by appearance. (2) Gastroesophageal reflux: Code(s): K21.9 - Gastro-esophageal reflux disease without esophagitis Status: Acute Assessment and Plan: * She describes GERD symptoms with burning, belching, and feelings of regurgitation at nighttime. * Started PPI (3) HIV positive: Code(s): Z21 - Asymptomatic human immunodeficiency virus [HIV] infection status Status: Acute Assessment and Plan: * Recently discovered that her boyfriend of 16 years was HIV positive. * Sent labs for confirmation. * id evaluating. (4) Hypertension: Code(s): I10 - Essential (primary) hypertension Status: Acute Assessment and Plan: * Blood pressures were soft on arrival to the emergency department, but have improved with IV fluid rehydration. * For now, holding antihypertensives and continue to monitor closely. (5) Hypothyroidism: Code(s): E03.9 - Hypothyroidism, unspecified Status: Acute Assessment and Plan: * Continue levothyroxine and TSH normal. (6) Normocytic anemia: Code(s): D64.9 - Anemia, unspecified Status: Acute Assessment and Plan: * iron studies revealed iron and TIBC low compatible with anemia chronic disease (7) Squamous cell carcinoma of head and neck: Code(s): C76.0 - Malignant neoplasm of head, face and neck Status: Acute Assessment and Plan: * Status post resection, radiation, and chemotherapy in 2007, will follow-up with ENT. (8) Nicotine dependence: Code(s): F17.200 - Nicotine dependence, unspecified, uncomplicated Status: Acute Assessment and Plan: * She declines the need for a nicotine patch. (9) Chronic pain syndrome: Code(s): G89.4 - Chronic pain syndrome Status: Acute Assessment and Plan: * Continue oxycodone as needed. Subjective Date/time seen: 11/17/19 15:50 Interval history: DAte of visit 11/16. 58yo female with hx of sqamous cell neck cancer s/p XRT here for fever and cough and found to have RLL pneumonia. She states her longstanding boyfriend was recently diagnosed with HIV and the patietn is HIV Ab(+) here. No problems overnight. Slept well. Feeling
--- NOTE | 2019-11-17 15:50 | PM.IMPN ---
Progress Note: A&P Assessment and Plan (1) Community acquired pneumonia: Code(s): J18.9 - Pneumonia, unspecified organism Status: Acute Assessment and Plan: Right lower lobe consolidation suggesting community-acquired bacterial pneumonia. Will need follow-up to resolution to exclude underlying chronic process. Given reports of Occasional dysphasia swallow test performed and revealed some evidence of aspiration. Patient relates though she is not going to follow a modified diet discussed with speech therapy and will resume diet with no restriction continue 1 more days of Zosyn and vancomycin per ID total 5-6 days treatment Sputum and urine to be sent for culture and urinary antigens still pending. COVID-19 unlikely by appearance. (2) Gastroesophageal reflux: Code(s): K21.9 - Gastro-esophageal reflux disease without esophagitis Status: Acute Assessment and Plan: She describes GERD symptoms with burning, belching, and feelings of regurgitation at nighttime. Started PPI (3) HIV positive: Code(s): Z21 - Asymptomatic human immunodeficiency virus [HIV] infection status Status: Acute Assessment and Plan: Recently discovered that her boyfriend of 16 years was HIV positive. Sent labs for confirmation. id evaluating. (4) Hypertension: Code(s): I10 - Essential (primary) hypertension Status: Acute Assessment and Plan: Blood pressures were soft on arrival to the emergency department, but have improved with IV fluid rehydration. For now, holding antihypertensives and continue to monitor closely. (5) Hypothyroidism: Code(s): E03.9 - Hypothyroidism, unspecified Status: Acute Assessment and Plan: Continue levothyroxine and TSH normal. (6) Normocytic anemia: Code(s): D64.9 - Anemia, unspecified Status: Acute Assessment and Plan: iron studies revealed iron and TIBC low compatible with anemia chronic disease (7) Squamous cell carcinoma of head and neck: Code(s): C76.0 - Malignant neoplasm of head, face and neck Status: Acute Assessment and Plan: Status post resection, radiation, and chemotherapy in 2007, will follow-up with ENT. (8) Nicotine dependence: Code(s): F17.200 - Nicotine dependence, unspecified, uncomplicated Status: Acute Assessment and Plan: She declines the need for a nicotine patch. (9) Chronic pain syndrome: Code(s): G89.4 - Chronic pain syndrome Status: Acute Assessment and Plan: Continue oxycodone as needed. Subjective Date/time seen: 11/17/19 15:50 Interval history: DAte of visit 11/16. 58yo female with hx of sqamous cell neck cancer s/p XRT here for fever and cough and found to have RLL pneumonia. She states her longstanding boyfriend was recently diagnosed with HIV and the patietn is HIV Ab(+) here. No problems overnight. Slept well. Feeling better overall. Tolerating regular diet Exam Narrative: Exam Narrative: AF 97.7 112/58 60 16 97% ra Gen - NARD Chest - clear, nml RR CV - RRR S1/S2; Abd - Soft, NT/ND, Positive BS Ext - No pedal edema Psych - normal mood and affect, calm, pleasant and cooperative. Skin - Warm and dry Objective Data Vital Signs Vital Signs: Vital Signs - 24 hr 11/16/19 23:42 11/17/19 05:45 11/17/19 14:00 Temperature 36.8 C 36.2 C L 36.2 C L Puls
[2019-11-17 19:40] LABS: Pneumococcal Antigen Urine Not Detected (Not Detected)
[2019-11-17 19:55] LABS: Hepatitis B Core Ab Total Nonreactive (Nonreactive)
[2019-11-17] MEDS: ENOXAPARIN 40 MG/0.4 ML SYRINGE SUB-Q (21:12)
[2019-11-17 22:00] VITALS: BP 146/73; PULSE 61; RESP 20; TEMP 36.2; O2SAT 97
[2019-11-18 01:10] LABS: NIL 0.02 IU/mL; Quantiferon TB Plus, 1T NEGATIVE (NEGATIVE)
[2019-11-18] MEDS: ACETAMINOPHEN 325 MG TABLET 650 MG PO (02:42)
[2019-11-18 06:00] VITALS: BP 133/61; PULSE 73; RESP 18; TEMP 36.4; O2SAT 96
[2019-11-18] MEDS: LEVOTHYROXINE SODIUM 50 MCG TABLET PO (06:19)
[2019-11-18 06:20] LABS: Estimated CRCL calculation 94 ml/min; Estimated Glomerular Filt Rate > 60
[2019-11-18 08:10] VITALS: BP 130/64; PULSE 74; RESP 12; TEMP 36.4; O2SAT 99
[2019-11-18] MEDS: PANTOPRAZOLE SODIUM IV 40 MG VIAL IV PUSH (08:53)
[2019-11-18] MEDS: CHLORHEXIDINE GLUCONATE 0.12% ORAL RINSE 473 ML BTL (*BKC) 15 ML SWISH/SPIT (08:53)
--- NOTE | 2019-11-18 09:35 | PC.NURSE ---
spoke with Cristina in lab regarding patient's pending HIV labs. confirmed that blood will be sent to [facility] this AM to finish HIV testing.
[2019-11-18] MEDS: ROSUVASTATIN 10 MG TABLET 40 MG PO (09:55)
[2019-11-18] MEDS: SERTRALINE HCL 50 MG TABLET 200 MG PO (09:55)
[2019-11-18 17:46] LABS: Legionella pneumophila Ag Ur Not Detected (Not Detected)
[2019-11-18 18:05] LABS: Absolute CD4 Count 176 cells/uL (490-1740); Lymphocytes, Absolute 776 cells/uL (850-3900); Percent CD4 Cells 23 % (30-61)
[2019-11-18 22:28] LABS: HIV 1 RNA PCR 10200 Copies/mL; HIV 1 RNA PCR 4.01 Log cps/mL
--- NOTE | 2019-11-23 12:29 | P.DS_ITS ---
DS: Admitting Diagnosis Admitting Diagnosis Admitting Diagnosis: Pneumonia, HIV + DS: Discharge Diagnosis Discharge Diagnosis (1) Community acquired pneumonia: Code(s): J18.9 - Pneumonia, unspecified organism Status: Acute Assessment and Plan: * Right lower lobe consolidation suggesting community-acquired bacterial pneumonia. * Will need follow-up to resolution to exclude underlying chronic process. * Given reports of Occasional dysphasia swallow test performed and revealed some evidence of aspiration. Patient relates though she is not going to follow a modified diet * discussed with speech therapy and will resume diet with no restriction * finisshed 6 day rx Zosyn and vancomycin per ID * Sputum and urine to be sent for culture and urinary antigens all neg. (2) Gastroesophageal reflux: Code(s): K21.9 - Gastro-esophageal reflux disease without esophagitis Status: Acute Assessment and Plan: * She describes GERD symptoms with burning, belching, and feelings of regurgitation at nighttime. * PPI while in patient (3) HIV positive: Code(s): Z21 - Asymptomatic human immunodeficiency virus [HIV] infection status Status: Acute Assessment and Plan: * Recently discovered that her boyfriend of 16 years was HIV positive. * after D/c viral load returned [id number] and absolute CD4 of 176. * following up eith id after d/c. (4) Hypertension: Code(s): I10 - Essential (primary) hypertension Status: Acute Assessment and Plan: * Blood pressures were soft on arrival to the emergency department, but have improved with IV fluid rehydration. * resumed antihyperensive on d/c. (5) Hypothyroidism: Code(s): E03.9 - Hypothyroidism, unspecified Status: Acute Assessment and Plan: * Continue levothyroxine and TSH normal. (6) Normocytic anemia: Code(s): D64.9 - Anemia, unspecified Status: Acute Assessment and Plan: * iron studies revealed iron and TIBC low compatible with anemia chronic disease * hgb 9.9 at d/c (7) Squamous cell carcinoma of head and neck: Code(s): C76.0 - Malignant neoplasm of head, face and neck Status: Acute Assessment and Plan: * Status post resection, radiation, and chemotherapy in 2007, will follow-up with ENT. (8) Nicotine dependence: Code(s): F17.200 - Nicotine dependence, unspecified, uncomplicated Status: Acute Assessment and Plan: * She declines the need for a nicotine patch. (9) Chronic pain syndrome: Code(s): G89.4 - Chronic pain syndrome Status: Acute Assessment and Plan: * Continue oxycodone as needed. DS: Summary Hospital Course Hospital Course: 58-year-old hypertensive white female admitted with right lower lobe pneumonia community-acquired. Found to be HIV positive and treated with broad-spectrum antibiotics with Zosyn and vancomycin. symptoms resolved and cultures all negative.
--- NOTE | 2019-11-23 12:29 | PM.DS ---
DS: Admitting Diagnosis Admitting Diagnosis Admitting Diagnosis: Pneumonia, HIV + DS: Discharge Diagnosis Discharge Diagnosis (1) Community acquired pneumonia: Code(s): J18.9 - Pneumonia, unspecified organism Status: Acute Assessment and Plan: Right lower lobe consolidation suggesting community-acquired bacterial pneumonia. Will need follow-up to resolution to exclude underlying chronic process. Given reports of Occasional dysphasia swallow test performed and revealed some evidence of aspiration. Patient relates though she is not going to follow a modified diet discussed with speech therapy and will resume diet with no restriction finisshed 6 day rx Zosyn and vancomycin per ID Sputum and urine to be sent for culture and urinary antigens all neg. (2) Gastroesophageal reflux: Code(s): K21.9 - Gastro-esophageal reflux disease without esophagitis Status: Acute Assessment and Plan: She describes GERD symptoms with burning, belching, and feelings of regurgitation at nighttime. PPI while in patient (3) HIV positive: Code(s): Z21 - Asymptomatic human immunodeficiency virus [HIV] infection status Status: Acute Assessment and Plan: Recently discovered that her boyfriend of 16 years was HIV positive. after D/c viral load returned [id number] and absolute CD4 of 176. following up eith id after d/c. (4) Hypertension: Code(s): I10 - Essential (primary) hypertension Status: Acute Assessment and Plan: Blood pressures were soft on arrival to the emergency department, but have improved with IV fluid rehydration. resumed antihyperensive on d/c. (5) Hypothyroidism: Code(s): E03.9 - Hypothyroidism, unspecified Status: Acute Assessment and Plan: Continue levothyroxine and TSH normal. (6) Normocytic anemia: Code(s): D64.9 - Anemia, unspecified Status: Acute Assessment and Plan: iron studies revealed iron and TIBC low compatible with anemia chronic disease hgb 9.9 at d/c (7) Squamous cell carcinoma of head and neck: Code(s): C76.0 - Malignant neoplasm of head, face and neck Status: Acute Assessment and Plan: Status post resection, radiation, and chemotherapy in 2007, will follow-up with ENT. (8) Nicotine dependence: Code(s): F17.200 - Nicotine dependence, unspecified, uncomplicated Status: Acute Assessment and Plan: She declines the need for a nicotine patch. (9) Chronic pain syndrome: Code(s): G89.4 - Chronic pain syndrome Status: Acute Assessment and Plan: Continue oxycodone as needed. DS: Summary Hospital Course Hospital Course: 58-year-old hypertensive white female admitted with right lower lobe pneumonia community-acquired. Found to be HIV positive and treated with broad-spectrum antibiotics with Zosyn and vancomycin. symptoms resolved and cultures all negative. After discharge viral load return did 10,200 and absolute CD4 count at 176 she will follow-up with infectious disease and primary care and will need follow-up chest x-ray to sugar resolution. Modified barium swallow did show some possible aspiration and she will follow with ENT given her past history. Time Spent with Patient Time attestation: Total time spent providing and/or coordinating discharge services: 35 minutes Exam Narrative: Exam Narrative: Loretta
[2019-11-25 07:00] LABS: HIV DNA PCR (Qual) Detected (Not Detected)
== END 2019-11-18 14:04 | disposition home or self-care (01) | DRG 194 ==
LOC: ANHED 15:58 → ANHIMU 16:52 → ANH3MED 11-16 12:56 → ANHIMU 11-22 10:33
PROVIDERS: Internal Medicine Infectious Disease; Physician Assistant; Admitting Provider Internal Medicine; Emergency Provider Emergency Medicine; Visit Provider Internal Medicine
DX: J15.9 Unspecified bacterial pneumonia (principal); R78.81 Bacteremia; C76.0 Malignant neoplasm of head, face and neck; D63.8 Anemia in other chronic diseases classified elsewhere; Z21 Asymptomatic human immunodeficiency virus [HIV] infection status; K21.9 Gastro-esophageal reflux disease without esophagitis; I10 Essential (primary) hypertension; E03.9 Hypothyroidism, unspecified; F17.210 Nicotine dependence, cigarettes, uncomplicated; G89.4 Chronic pain syndrome; R13.10 Dysphagia, unspecified; D72.819 Decreased white blood cell count, unspecified; K05.10 Chronic gingivitis, plaque induced; E78.5 Hyperlipidemia, unspecified; F32.9 Major depressive disorder, single episode, unspecified; F41.9 Anxiety disorder, unspecified; Z79.899 Other long term (current) drug therapy; Z92.21 Personal history of antineoplastic chemotherapy; Z92.3 Personal history of irradiation
CPT/HCPCS: 36415; 71045; 71275; 80048; 80053; 80074; 80202; 82565; 82607; 82728; 82746; 83540; 83550; 83605; 83615; 83735; 84443; 85025; 85027; 85046; 85380; 86140; 86361; 86480; 86592; 86703; 86704; 87040; 87077; 87186; 87449; 87535; 87536; 87899; 92526; 92611; 96361; 96365; 96366; 96367; 96372; 96375; 96376; 99285; A4248; A9270; C9113; G0378; G0432; J0131; J0456; J0696; J1650; J2060; J2543; J3370; J7030; J7042; Q9967

== ENCOUNTER → 2021-11-28 12:38 | Outpatient (CLI) | payer OTHER, SELFPAY ==
--- NOTE | ~2021-11-28 | MM_ITS ---
EXAMINATION: MM screening suad BI w po HISTORY: Screening TECHNIQUE: Craniocaudal and mediolateral oblique 3-D tomosynthesis images were obtained and synthetic 2-D images were generated. CAD analysis was submitted and interpreted. COMPARISON: Comparison to multiple prior studies sequentially, with oldest reviewed study dated 09/2012. BREAST PARENCHYMAL COMPOSITION: The breasts are almost entirely fatty. FINDINGS: There is no evidence of suspicious mass, calcification, or architectural distortion to sugg est malignancy in either breast. There has been no suspicious interval change. IMPRESSION: 1. No mammographic evidence of malignancy. 2. Recommend routine screening mammography in one year. BI-RADS Category 1: Negative Reviewed, dictated and finalized at location A.
== END ==
DX: Z12.31 Encounter for screening mammogram for malignant neoplasm of breast (principal)
CPT/HCPCS: 77063; 77067